=== PATIENT | female | born 2000 | race Two or more races ===

== ENCOUNTER 2024-06-05 10:25 | Outpatient (AMB) | payer MEDICAID, SELFPAY ==
[2024-06-05 10:43] VITALS: BP 123/78; PULSE 87; RESP 16; TEMP 36.6; O2SAT 98; BMI 29.5
--- NOTE | 2024-06-05 10:43 | AMB.OBINITIA ---
Vital Signs 06/05/24 10:43 Height 1.55 m Height Method Stated Weight 70.987 kg Weight Measurement Method Standing Scale BMI 29.5 BP 123/78 Blood Pressure Source Automatic Cuff Blood Pressure Location Left Upper Arm Position Sitting Respiration 16 Pulse 87 Pulse Source Monitor Temp 97.9 F Temp Source Oral Pulse Oximetry (%) 98 Oxygen Delivery Method Room Air Allergies/Home Meds Allergies & Medications Allergies No Known Allergies Allergy (Verified 06/05/24 10:45) Medication Reconciliation aspirin 81 mg capsule 81 mg PO QDAY 60 days #60 caps 06/05/24 [Rx] Intake Visit Data Collection New Patient or Established: New Patient (never been to [facility]) Reason for Visit:: OB Care Seen by Clinical Staff ONLY (RN/MA): No Junior Php Developer Required: Yes Junior Php Developer's name/title: Ami Sun Do You Feel Safe at Home: Yes Authorities Contacted: N/A PCP or OBGYN visit in last 3 months: Yes Hx Now: Yes Are you currently on any form of Control: No Last menstrual period: 10/19/23 Pain Present Currently: No Pain Scale Used: Turner-Aldridge/Numerical Pain scale:: 0 Smoking Status Smoking Status: Never smoker Questionnaires Covid-19 Vaccine Questionnaire Has patient been vacinated for Covid-19 Have you been vacinated for Covid-19: No PHQ-9 PHQ-2 Over the last 2 weeks, how often have you been bothered by any of the following problems? 1. Little interest or pleasure in doing things: not at all 2. Feeling down, depressed, or hopeless: not at all Total score: 0 PHQ-9 3. Trouble falling or staying asleep, or sleeping too much: Not at all 4. Feeling tired or having little energy: Not at all 5. Poor appetite or overeating: Not at all 6. Feeling bad about yourself - or that you are a failure or have let yourself or your family down: Not at all 7. Trouble concentrating on things, such as reading the newspaper or watching television: Not at all 8. Moving or speaking so slowly that other people could have noticed? - Or the opposite - being so fidgety or restless that you have been moving around a lot more than usual: not at all 9. Thoughts that you would be better off or of hurting yourself in some way: Not at all Total score: 0 Source: Developed by Drs. Mahesh Rosen, Raina Douglas, Vern Keen and colleagues, with an educational paulette from [employer]. Depression screen completed yes Social History Living Situation History Marital Status: Single Lives With: Family Housing: House Tobacco History Smoking Status: Never smoker Second Hand Smoke Exposure: No Alcohol History Alcohol Intake: Never Substance Use History Substance Use: none Domestic Abuse History Do You Feel Safe at Home: Yes Past Medical History Past Medical History Have you ever been diagnosed with any of the following: Neurological Problems Cerebrovascular Accident (CVA): No Transient Ischemic Attacks (TIA): No Dementia: No Alzheimer's Disease: No Parkinson's Disease: No Brain Tumor: No Meningitis: No Seizures: No Epilepsy: No Multiple Sclerosis: No Cerebral Palsy: No Amyotrophic Lateral Sclerosis (ALS/Elvie Gehrig's): No Guillain-[place] Syndrome: No Spina Bifida: No Paralysis: No Peripheral Neuropathy: No Marsh's Palsy: No Subdural Hematoma: No Migraine: No Head Trauma: No Spinal Cord Injury: No Traumatic Brain Injury: No Cardiology Problems Myocardial Infarction: No Cardiac Arrhythmia: No Atrial Fibrillation: No Angina: No Heart Murmur: No Hypertension: Yes (Mother) Respiratory Problems Chronic Obstructive Pulmonary Disease (COPD): No Asthma: No Bronchitis: No Emphysema: No Pneumonia: No Pulmonary Fibrosis: No Tuberculosis: No Pulmonary Embolism: No Pulmonary Edema: No Hx Cough: No Cough: No Wheezing: No Smoking: No Smoking Cessation Counseling: No Smoking Exposure: No Tobacco Use: No Stomache/Intestinal Problems Liver Cancer: No Hepatitis: No Cirrhosis: No Pancreatic Cancer: No Pancreatitis: No Celiac Disease: No Genital/Urinary Problems Chronic Kidney Disease: No Renal Disease: No Kidney Stones: No Polycystic Kidney Disease: No Neurogenic Bladder: No Inguinal Hernia: No Dialysis: No Prostate Cancer: No Benign Prostatic Hyperplasia: No Reproductive Problems Breast Cancer: No Endometriosis: No Fibroids: No Genital Herpes: No Gonorrhea: No Pelvic Inflammatory Disease: No Polycystic Ovarian Syndrome: No Previous Pregnancies: Yes Syphilis: No Testicular Cancer: No Uterine Prolapse: No Musculoskeletal Problems Muscular Dystrophy: No Myasthenia Gravis: No Marfan's Syndrome: No Bone Cancer: No Arthritis: No Head,Eye,Nose,Throat Problems Cataracts: No Glaucoma: No Blind: No Retinal Detachment: No Macular Degeneration: No Chronic Ear Infections: No Deafness: No Eye Prosthesis: No Endocrine Problems Diabetes Mellitus Type 1: No Diabetes Mellitus Type 2: Yes (Father ) [place]'s Syndrome: No [place]'s Disease: No Hyperthyroidism: No Hypothyroidism: No Blood Problems Anemia: No Leukemia: No Hemophilia: No Thalassemia: No Sickle Cell Disease: No Clotting Problems: No Psychologic Problems Schizophrenia: No Recreational Drug Use: No Bipolar Disorder: No Depression: No Anxiety: No Behavior Problems: No Self-Mutilation: No Attention Deficit Disorder: No Attention Deficit Hyperactivity Disorder: No Depression: No Post Traumatic Stress Disorder: No Eating Disorder: No Other Problems Hospitalization: No Autoimmune Disease: No Down Syndrome: No Autism: No Developmental Delay: No Cosmetic Surgery: No Shingles: No Falls: No Blood Transfusions: No Blood Transfusion Reaction: No Anesthesia Reactions: No Organ Transplant: No Chemotherapy: No Radiation Therapy: No Hyperbaric Therapy: No Surgical History Angioplasty: No Appendectomy: No Bariatric Surgery: No Breast Surgery: No Cancer Surgery: No Carotid Endarterectomy: No Cholecystectomy: No Colectomy: No Colostomy: No Coronary Artery Bypass Graft: No Valve Replacement: No Herniorrhaphy: No Total Hip Replacement: No Total Knee Replacement: No Hysterectomy: No Pacemaker: No Sinus Surgery: No Splenectomy: No TAHBSO-Total Abdominal Hysterectomy: No Thyroidectomy: No Ureter Stent: No History of Present Illness HPI Narrative Patient is a at 33 weeks and 4 days gestation, presenting for transfer of care. Her last menstrual period is uncertain, occurring in April 2023. was dated using a 12-week, 5-day ultrasound performed on 01-11-2024, with an estimated due date of 07-20-2024. Patient has a history of a previous delivery at 33 weeks in [place] in 2018 due to preeclampsia. The incision was transverse. She is currently taking vitamins, iron, and folic acid. Aspirin is planned to prevent preeclampsia but has not yet been started. Patient denies any current problems and reports the baby is active. Her blood group is O-positive with a negative antibody screen. She has [employer] insurance, which may affect ultrasound authorization. OB Initial Visit Menstrual History Menstrual reliability: definite Flow: normal Menstrual regularity: regular Monthly: Yes Age at menarche: 14 On control pills at conception: No Date of positive home test: 11/16/23 Associated symptoms (LMP): Reports fatigue OB History : 2 Para: 1 Hx # Pregnancies: 1 Hx Total # of Abortions (Spontaneous & Elective): 0 # of Living Children: 1 Delivery History 1st : Child's name: Uday date: 11/11/17 sex: male Gestational age at delivery (weeks): 33 Delivery type: weight (lbs): 2100 g History of depression before or after : No Infection History & Risk Evaluation History of STDs: chlamydia Varicella/chicken pox status: immunized Genetic Screening & History Genetic Screening/Teratology Counseling - Includes patient, baby's father, or anyone in either family with: 1. Patient's age 35 years or older as of estimated date of delivery: No 2. Thalassemia (Vietnamese, English, Mediterranean, or Background); MCV less than 80: No 3. Neural Tube Defect (Meningomyelocele, Spina Bifida, or Anencephaly): No 4. Congenital Heart Defect: No 5. Down Syndrome: No 6. Rashad-Sachs (Ashkenazi Confucianism, Cajun, [place]): No 7. Manjula Disease (Ashkenazi Confucianism): No 8. Familial Dysautonomia (Ashkenazi Confucianism): No 9. Sickle Cell Disease or Trait (): No 10. Hemophilia or other blood disorders: No 11. Muscular Dystrophy: No 12. Cystic Fibrosis: No 13. [place]'s Chorea: No 14. Mental Retardation/Autism: No 15. Other inherited genetic or chromosomal disorder: No 16. Maternal Metabolic Disorder (EG,TYPE 1 Diabetes, PKU): No 17. Patient or baby's father had a child with defects not listed above: No 18. Recurrent loss or a stillbirth: No 19. Medications (including supplements, vitamins, herbs or otc drugs)/illicit/recreational drugs/alcohol since last menstrual period: No 20. Any other: No Infection History 1. Live with someone with TB or exposed to TB: No 2. Rash or viral illness since last menstrual period: No 3. Hepatitis B,C: No 4. History of STD: chlamydia Other (see comments) Source: [employer] Review of Systems Review of Systems Systems Reviewed: All systems reviewed, normal except as documented Constitutional Constitutional: Reports fatigue Endocrine Endocrine: Reports fatigue Exam General Limitations: no limitations General Appearance: alert, in no apparent distress, comfortable, cooperative, healthy appearing, well developed and well groomed Head Head exam: atraumatic, normocephalic and normal inspection Neck Neck exam: Present normal inspection, full ROM and trachea midline Chest Chest inspection: Present normal inspection and symmetric chest wall rise Abdominal Abdominal exam: Present soft and normal bowel sounds Extremities Extremities exam: Present normal inspection and full ROM Back Back exam: Present normal inspection and full ROM Psych Psychiatric exam: Present normal affect and normal mood Skin Skin exam: Present warm, dry, intact and normal color Assessment & Plan Diagnosis / Problem List (1) Supervision of high risk , unspecified, third trimester: Status: Acute Plan: , 33 weeks 4 days gestation: - 23-year-old presenting for transfer of care. - JUSTIN 07/20/2024 based on 12-week 5-day ultrasound. - History of delivery via section at 33 weeks in 2018 due to preeclampsia. - Current appears uncomplicated with normal labs and screening tests. - Blood group O-positive, antibody screen negative, rubella immune, RPR non-reactive. - Hepatitis B negative, HIV negative, gonorrhea and chlamydia negative. - One-hour glucose tolerance 122, cystic fibrosis screening negative, AFB negative. Plan: - Start low-dose aspirin for preeclampsia prevention. - Order growth ultrasound to assess weight. - Schedule follow-up appointment in 2 weeks. - Continue vitamins, iron, and folic acid supplementation. - Await insurance authorization for ultrasound; clinic to contact patient once approved. (2) Hx of preeclampsia, prior , currently : Status: Acute Additional Plan Follow Up: 2 Weeks Office Procedures OB Clinic LOC & Office Proc's Nursing/Assessment Patient Status: Established Patient OB Clinic Nursing Assessment: Medication Reconciliation, Update PMH in EMR and Vital Signs OB Clinic Coordination of Care: Complex Care and Chronic Disease 1-5, Consent,records obtained, informed consent, Education Simp Pt/Fam, Lab and Imaging orders, Results/Orders obtained and Staff clarify orders Special Needs: Heart tones Established Patient Charge Established Patient Point Assignment: 135 Established Patient Point Charge: EP Level 4 (120-155)
== END 2024-06-05 10:55 | disposition home or self-care (01) ==
LOC: HODSOBC 10:25
PROVIDERS: PCP Obstetrics & Gynecology; Referring Provider Obstetrics & Gynecology; Supervising Provider Obstetrics & Gynecology; Visit Provider Obstetrics & Gynecology
DX: O09.93 Supervision of high risk pregnancy, unspecified, third trimester (principal); Z3A.33 33 weeks gestation of pregnancy
CPT/HCPCS: 99214; G0463

== ENCOUNTER 2024-06-20 09:25 | Outpatient (AMB) | payer MEDICAID, SELFPAY ==
[2024-06-20 09:34] VITALS: BP 124/83; PULSE 85; RESP 16; TEMP 36.6; O2SAT 98; BMI 30.3
--- NOTE | 2024-06-20 09:34 | OBCLNT_ITS ---
Vital Signs 06/20/24 09:34 Height 1.55 m Height Method Stated Weight 72.802 kg Weight Measurement Method Standing Scale BMI 30.3 BP 124/83 Blood Pressure Source Automatic Cuff Blood Pressure Location Left Upper Arm Position Sitting Respiration 16 Pulse 85 Pulse Source Monitor Temp 97.8 F Temp Source Oral Pulse Oximetry (%) 98 Oxygen Delivery Method Room Air Allergies/Home Meds Allergies & Medications Allergies No Known Allergies Allergy (Verified 06/28/24 10:09) Medication Reconciliation aspirin 81 mg capsule 81 mg PO QDAY 60 days #60 caps 06/05/24 [Rx Confirmed 06/28/24] Intake Visit Data Collection New Patient or Established: Established Patient (seen at [facility] within 3 years) Reason for Visit:: CARE/ U/S RESULTS Seen by Clinical Staff ONLY (RN/MA): No Associate Account Manager Required: Yes Associate Account Manager's name/title: SIMI UNGER Do You Feel Safe at Home: Yes Authorities Contacted: N/A PCP or OBGYN visit in last 3 months: Yes Date of Last PCP or OBGYN visit: 06/13/24 Hx Now: Yes Are you currently on any form of Control: No Last menstrual period: 10/18/24 Pain Present Currently: No Pain Scale Used: Turner-Aldridge/Numerical Pain scale:: 0 Smoking Status Smoking Status: Never smoker Questionnaires PHQ-9 PHQ-2 Over the last 2 weeks, how often have you been bothered by any of the following problems? 1. Little interest or pleasure in doing things: not at all 2. Feeling down, depressed, or hopeless: not at all Total score: 0 PHQ-9 3. Trouble falling or staying asleep, or sleeping too much: Not at all 4. Feeling tired or having little energy: Not at all 5. Poor appetite or overeating: Not at all 6. Feeling bad about yourself - or that you are a failure or have let yourself or your family down: Not at all 7. Trouble concentrating on things, such as reading the newspaper or watching television: Not at all 8. Moving or speaking so slowly that other people could have noticed? - Or the opposite - being so fidgety or restless that you have been moving around a lot more than usual: not at all 9. Thoughts that you would be better off or of hurting yourself in some way: Not at all Total score: 0 Source: Developed by Drs. Mahesh Rosen, Raina Douglas, Vern Keen and colleagues, with an educational paulette from [employer]. Depression screen completed yes Social History Living Situation History Marital Status: Single Lives With: Family Housing: House Tobacco History Smoking Status: Never smoker Second Hand Smoke Exposure: No Alcohol History Alcohol Intake: Never Substance Use History Substance Use: none Domestic Abuse History Do You Feel Safe at Home: Yes Past Medical History Past Medical History Have you ever been diagnosed with any of the following: Neurological Problems Cerebrovascular Accident (CVA): No Transient Ischemic Attacks (TIA): No Dementia: No Alzheimer's Disease: No Parkinson's Disease: No Brain Tumor: No Meningitis: No Seizures: No Epilepsy: No Multiple Sclerosis: No Cerebral Palsy: No Amyotrophic Lateral Sclerosis (ALS/Elvie Gehrig's): No Guillain-[place] Syndrome: No Spina Bifida: No Paralysis: No Peripheral Neuropathy: No Marsh's Palsy: No Subdural Hematoma: No Migraine: No Head Trauma: No Spinal Cord Injury: No Traumatic Brain Injury: No Cardiology Problems Myocardial Infarction: No Cardiac Arrhythmia: No Atrial Fibrillation: No Angina: No Heart Murmur: No Hypertension: Yes (Mother) Respiratory Problems Chronic Obstructive Pulmonary Disease (COPD): No Asthma: No Bronchitis: No Emphysema: No Pneumonia: No Pulmonary Fibrosis: No Tuberculosis: No Pulmonary Embolism: No Pulmonary Edema: No Hx Cough: No Cough: No Wheezing: No Smoking: No Smoking Cessation Counseling: No Smoking Exposure: No Tobacco Use: No Stomache/Intestinal Problems Liver Cancer: No Hepatitis: No Cirrhosis: No Pancreatic Cancer: No Pancreatitis: No Celiac Disease: No Genital/Urinary Problems Renal Disease: No Kidney Stones: No Polycystic Kidney Disease: No Neurogenic Bladder: No Inguinal Hernia: No Dialysis: No Prostate Cancer: No Benign Prostatic Hyperplasia: No Reproductive Problems Breast Cancer: No Endometriosis: No Fibroids: No Genital Herpes: No Gonorrhea: No Pelvic Inflammatory Disease: No Polycystic Ovarian Syndrome: No Previous Pregnancies: Yes Syphilis: No Testicular Cancer: No Uterine Prolapse: No Musculoskeletal Problems Muscular Dystrophy: No Myasthenia Gravis: No Marfan's Syndrome: No Bone Cancer: No Arthritis: No Head,Eye,Nose,Throat Problems Cataracts: No Glaucoma: No Blind: No Retinal Detachment: No Macular Degeneration: No Chronic Ear Infections: No Deafness: No Eye Prosthesis: No Endocrine Problems Diabetes Mellitus Type 1: No Diabetes Mellitus Type 2: Yes (Father ) [place]'s Syndrome: No Darell's Disease: No Hyperthyroidism: No Hypothyroidism: No Blood Problems Anemia: No Leukemia: No Hemophilia: No Thalassemia: No Sickle Cell Disease: No Clotting Problems: No Psychologic Problems Schizophrenia: No Recreational Drug Use: No Bipolar Disorder: No Depression: No Anxiety: No Behavior Problems: No Self-Mutilation: No Attention Deficit Disorder: No Attention Deficit Hyperactivity Disorder: No Depression: No Post Traumatic Stress Disorder: No Eating Disorder: No Other Problems Hospitalization: No Down Syndrome: No Autism: No Developmental Delay: No Cosmetic Surgery: No Shingles: No Falls: No Blood Transfusions: No Blood Transfusion Reaction: No Anesthesia Reactions: No Organ Transplant: No Chemotherapy: No Radiation Therapy: No Hyperbaric Therapy: No Hepatitis B: No Hepatitis C: No Communicable Disease: No Cancer: No Cervical Cancer: No Lung Cancer: No Ovarian Cancer: No Surgical History Angioplasty: No Appendectomy: No Bariatric Surgery: No Breast Surgery: No Cancer Surgery: No Carotid Endarterectomy: No Cholecystectomy: No Colectomy: No Colostomy: No Coronary Artery Bypass Graft: No Valve Replacement: No Herniorrhaphy: No Total Hip Replacement: No Total Knee Replacement: No Hysterectomy: No Pacemaker: No Sinus Surgery: No Splenectomy: No TAHBSO-Total Abdominal Hysterectomy: No Thyroidectomy: No Ureter Stent: No History of Present Illness HPI Narrative OBC at 35w5d. The patient reports experiencing cramping, which is noted to be common at this stage of . No contractions or other problems are reported. The patient has a history of previous section. No cramping/ bleeding No nausea/ vomiting Diagnostic Test Results and Labs: - Ultrasound (01-11-2024): Performed at 12 weeks, 5 days for dating - Blood group: O-positive - Antibody screen: negative - Labs (12-28-2023): - Rubella: immune - RPR: non-reactive - Hepatitis B: negative - HIV: negative - Gonorrhea: negative - Chlamydia: negative - One-hour glucose tolerance test: 122 - Cystic fibrosis screening: negative - AFB: negative Review of Systems Review of Systems Systems Reviewed: All systems reviewed, normal except as documented Visit JUSTIN Calculator Estimated Delivery Date Method Current WG Current Estimate 07/20/24 Ultrasound #1 37w 1d Exam General Limitations: no limitations General Appearance: alert, in no apparent distress, comfortable, cooperative, healthy appearing, well developed and well groomed Head Head exam: atraumatic, normocephalic and normal inspection Neck Neck exam: Present normal inspection, full ROM and trachea midline Card Cardiovascular exam: Present regular rate, normal rhythm and normal heart sounds Abdominal Abdominal exam: Present soft and normal bowel sounds Extremities Extremities exam: Present normal inspection and full ROM Back Back exam: Present normal inspection and full ROM Psych Psychiatric exam: Present normal affect and normal mood Skin Skin exam: Present warm, dry, intact and normal color Assessment & Plan Diagnosis / Problem List (1) Supervision of high risk , unspecified, third trimester: Status: Acute Plan: - 23-year-old presenting for transfer of care. - JUSTIN 07/20/2024 based on 12-week 5-day ultrasound. - History of delivery via section at 33 weeks in 2018 due to preeclampsia. - Current appears uncomplicated with normal labs and screening tests. - Blood group O-positive, antibody screen negative, rubella immune, RPR non- reactive. - Hepatitis B negative, HIV negative, gonorrhea and chlamydia negative. - One-hour glucose tolerance 122, cystic fibrosis screening negative, AFB negative. heart rate is 150 bpm, which is within normal range. - Schedule weekly visits from now until delivery - Perform Group B Streptococcus (GBS) vaginal culture swab at 36 weeks - Book section for delivery (date to be determined at next visit) - Follow-up appointment in one week (2) Hx of preeclampsia, prior , currently : Status: Acute Additional Assessment Prepare for the anatomy scan around 20 weeks to assess development and detect any potential abnormalities. Begin monitoring movements; report any significant decrease or absence of movement to your healthcare provider. Continue a nutritious diet and aim for appropriate weight gain as advised; stay physically active with safe exercises like walking or yoga. Undergo screening for gestational diabetes between 24 and 28 weeks to ensure early detection and management. Discuss any discomforts such as back pain or heartburn, and explore safe relief options. Office Procedures OB Clinic LOC & Office Proc's Nursing/Assessment Patient Status: Established Patient OB Clinic Nursing Assessment: Medication Reconciliation, Update PMH in EMR and Vital Signs OB Clinic Coordination of Care: Complex Care and Chronic Disease 1-5, Consent,records obtained, informed consent, Education Simp Pt/Fam, Results/Orders obtained and Staff clarify orders Special Needs: Heart tones Established Patient Charge Established Patient Point Assignment: 120 Established Patient Point Charge: EP Level 4 (120-155)
== END 2024-06-20 09:53 | disposition home or self-care (01) ==
LOC: HODSOBC 09:25
PROVIDERS: PCP Obstetrics & Gynecology; Referring Provider Obstetrics & Gynecology; Supervising Provider Obstetrics & Gynecology; Visit Provider Obstetrics & Gynecology
DX: O09.93 Supervision of high risk pregnancy, unspecified, third trimester (principal); Z87.59 Personal history of other complications of pregnancy, childbirth and the puerperium; Z3A.35 35 weeks gestation of pregnancy
CPT/HCPCS: 99214; G0463

== ENCOUNTER 2024-06-28 09:58 | Outpatient (AMB) | payer MEDICAID, SELFPAY ==
[2024-06-28 10:07] VITALS: BP 137/84; PULSE 83; RESP 16; TEMP 36.6; O2SAT 98; BMI 30.2
--- NOTE | 2024-06-28 10:07 | AMB.OBVISIT ---
Vital Signs 06/28/24 10:07 Height 1.55 m Height Method Stated Weight 72.688 kg Weight Measurement Method Standing Scale BMI 30.2 BP 137/84 H Blood Pressure Source Automatic Cuff Blood Pressure Location Left Upper Arm Position Sitting Respiration 16 Pulse 83 Pulse Source Monitor Temp 97.8 F Temp Source Oral Pulse Oximetry (%) 98 Oxygen Delivery Method Room Air Allergies/Home Meds Allergies & Medications Allergies No Known Allergies Allergy (Verified 06/28/24 10:09) Medication Reconciliation aspirin 81 mg capsule 81 mg PO QDAY 60 days #60 caps 06/05/24 [Rx Confirmed 06/28/24] Intake Visit Data Collection New Patient or Established: Established Patient (seen at [facility] within 3 years) Reason for Visit:: CARE Seen by Clinical Staff ONLY (RN/MA): No Classics Teacher Required: Yes Classics Teacher's name/title: SIMI UNGER Do You Feel Safe at Home: Yes Authorities Contacted: N/A PCP or OBGYN visit in last 3 months: Yes Date of Last PCP or OBGYN visit: 06/20/24 Hx Now: Yes Are you currently on any form of Control: No Pain Present Currently: No Pain Scale Used: Turner-Aldridge/Numerical Pain scale:: 0 Smoking Status Smoking Status: Never smoker Questionnaires Covid-19 Vaccine Questionnaire Has patient been vacinated for Covid-19 Have you been vacinated for Covid-19: No PHQ-9 PHQ-2 Over the last 2 weeks, how often have you been bothered by any of the following problems? 1. Little interest or pleasure in doing things: not at all 2. Feeling down, depressed, or hopeless: not at all Total score: 0 PHQ-9 3. Trouble falling or staying asleep, or sleeping too much: Not at all 4. Feeling tired or having little energy: Not at all 5. Poor appetite or overeating: Not at all 6. Feeling bad about yourself - or that you are a failure or have let yourself or your family down: Not at all 7. Trouble concentrating on things, such as reading the newspaper or watching television: Not at all 8. Moving or speaking so slowly that other people could have noticed? - Or the opposite - being so fidgety or restless that you have been moving around a lot more than usual: not at all 9. Thoughts that you would be better off or of hurting yourself in some way: Not at all Total score: 0 Source: Developed by Drs. Mahesh Rosen, Raina Douglas, Vern Keen and colleagues, with an educational paulette from [employer]. Depression screen completed yes Social History Living Situation History Lives With: Family Housing: House Tobacco History Smoking Status: Never smoker Second Hand Smoke Exposure: No Alcohol History Alcohol Intake: Never Substance Use History Substance Use: none Domestic Abuse History Do You Feel Safe at Home: Yes Past Medical History Past Medical History Have you ever been diagnosed with any of the following: Neurological Problems Cerebrovascular Accident (CVA): No Transient Ischemic Attacks (TIA): No Dementia: No Alzheimer's Disease: No Parkinson's Disease: No Brain Tumor: No Meningitis: No Seizures: No Epilepsy: No Multiple Sclerosis: No Cerebral Palsy: No Amyotrophic Lateral Sclerosis (ALS/Elvie Gehrig's): No Guillain-[place] Syndrome: No Spina Bifida: No Paralysis: No Peripheral Neuropathy: No Marsh's Palsy: No Subdural Hematoma: No Migraine: No Head Trauma: No Spinal Cord Injury: No Traumatic Brain Injury: No Cardiology Problems Myocardial Infarction: No Cardiac Arrhythmia: No Atrial Fibrillation: No Angina: No Heart Murmur: No Coronary Artery Disease: No Atherosclerotic Heart Disease: No Peripheral Vascular Disease: No Hypercholesterolemia: No Aneurysm: No Congestive Heart Failure: No Congenital Heart Disease: No Valvular Heart Disease: No Rheumatic Fever: No Hypertension: Yes (Mother) Respiratory Problems Chronic Obstructive Pulmonary Disease (COPD): No Asthma: No Bronchitis: No Emphysema: No Pneumonia: No Pulmonary Fibrosis: No Tuberculosis: No Pulmonary Embolism: No Pulmonary Edema: No Hx Cough: No Cough: No Wheezing: No Smoking: No Smoking Cessation Counseling: No Smoking Exposure: No Tobacco Use: No Stomache/Intestinal Problems Liver Cancer: No Hepatitis: No Cirrhosis: No Pancreatic Cancer: No Pancreatitis: No Celiac Disease: No Crohn's Disease: No Obstructive Bowel: No Genital/Urinary Problems Chronic Kidney Disease: No Renal Disease: No Kidney Stones: No Polycystic Kidney Disease: No Neurogenic Bladder: No Inguinal Hernia: No Dialysis: No Prostate Cancer: No Benign Prostatic Hyperplasia: No Reproductive Problems Breast Cancer: No Endometriosis: No Fibroids: No Genital Herpes: No Gonorrhea: No Pelvic Inflammatory Disease: No Polycystic Ovarian Syndrome: No Previous Pregnancies: Yes Syphilis: No Testicular Cancer: No Uterine Prolapse: No Musculoskeletal Problems Muscular Dystrophy: No Myasthenia Gravis: No Marfan's Syndrome: No Bone Cancer: No Arthritis: No Gout: No Head,Eye,Nose,Throat Problems Cataracts: No Glaucoma: No Blind: No Retinal Detachment: No Macular Degeneration: No Chronic Ear Infections: No Deafness: No Eye Prosthesis: No Endocrine Problems Diabetes Mellitus Type 1: No Diabetes Mellitus Type 2: Yes (Father ) Elzbieta's Syndrome: No Luzerne's Disease: No Hyperthyroidism: No Hypothyroidism: No Blood Problems Anemia: No Leukemia: No Hemophilia: No Thalassemia: No Sickle Cell Disease: No Clotting Problems: No Psychologic Problems Schizophrenia: No Recreational Drug Use: No Bipolar Disorder: No Depression: No Anxiety: No Behavior Problems: No Self-Mutilation: No Attention Deficit Disorder: No Attention Deficit Hyperactivity Disorder: No Depression: No Post Traumatic Stress Disorder: No Eating Disorder: No Other Problems Hospitalization: No Down Syndrome: No Autism: No Developmental Delay: No Cosmetic Surgery: No Shingles: No Falls: No Blood Transfusions: No Blood Transfusion Reaction: No Anesthesia Reactions: No Organ Transplant: No Chemotherapy: No Radiation Therapy: No Hyperbaric Therapy: No Hepatitis B: No Hepatitis C: No Communicable Disease: No Cancer: No Cervical Cancer: No Lung Cancer: No Ovarian Cancer: No Surgical History Angioplasty: No Appendectomy: No Bariatric Surgery: No Breast Surgery: No Cancer Surgery: No Carotid Endarterectomy: No Cholecystectomy: No Colectomy: No Colostomy: No Coronary Artery Bypass Graft: No Valve Replacement: No Herniorrhaphy: No Total Hip Replacement: No Total Knee Replacement: No Hysterectomy: No Pacemaker: No Sinus Surgery: No Splenectomy: No TAHBSO-Total Abdominal Hysterectomy: No Thyroidectomy: No Ureter Stent: No Visit JUSTIN Calculator Estimated Delivery Date Method Current WG Current Estimate 07/20/24 Ultrasound #1 36w 6d Office Procedures OB Clinic LOC & Office Proc's Nursing/Assessment Patient Status: Established Patient OB Clinic Nursing Assessment: Medication Reconciliation, Update PMH in EMR and Vital Signs OB Clinic Coordination of Care: Complex Care and Chronic Disease 1-5, Consent,records obtained, informed consent, Education Simp Pt/Fam, Lab and Imaging orders and Staff clarify orders Special Needs: Heart tones Miscellaneous Interventions: Culture Specimen Collection Established Patient Charge Established Patient Point Assignment: 145 Established Patient Point Charge: EP Level 4 (120-066)
== END 2024-06-28 10:22 | disposition home or self-care (01) ==
LOC: HODSOBC 09:58
PROVIDERS: PCP Obstetrics & Gynecology; Referring Provider Obstetrics & Gynecology; Supervising Provider Obstetrics & Gynecology; Visit Provider Obstetrics & Gynecology
DX: Z34.93 Encounter for supervision of normal pregnancy, unspecified, third trimester (principal); Z3A.36 36 weeks gestation of pregnancy
CPT/HCPCS: 99214; G0463

== ENCOUNTER 2024-06-28 14:20 | Outpatient (RCR) | payer MEDICAID, SELFPAY ==
--- NOTE | 2024-06-08 14:53 | XR_ITS ---
EXAMINATION: US OB biophysical profile ORDERING PROVIDER: Waylon Bartlett MD HISTORY: WEEKLY NST/BPP; HX OF PRECLAMPSIA TECHNIQUE: Multiple transabdominal sonographic images were obtained by nuclear medicine technologist and submitted for interpretation. COMPARISON: 01/03/2024, pelvic ultrasound OB less than 14 weeks. FINDINGS: FETUS: Chery. HEART MOTION: 150 beats/min. AMNIOTIC FLUID INDEX: 18.2 cm BREATHING MOVEMENT: 2 . GROSS BODY MOVEMENT: 2 . TONE: 2 . QUALITATIVE AMNIOTIC FLUID VOLUME: 2 TOTAL BIOPHYSICAL PROFILE: 8 of 8 . IMPRESSION: Single live intrauterine gestation with biophysical profile 8 of 8.
[2024-06-08 15:21] VITALS: BP 124/68; PULSE 81; RESP 16; TEMP 36.9
--- NOTE | 2024-06-13 14:40 | XR_ITS ---
Examination: Biophysical profile, ultrasound Date and time of exam: June 13, 2024 1451 hours INDICATIONS: History preeclampsia of Technique: Multiple transabdominal sonographic images of the pelvis abdomen obtained. Attention is directed to the breathing movement, gross body movement, amniotic fluid volume and tone. Findings: Amniotic fluid index 10.1 cm Total biophysical profile is 8 of 8. breathing movement is 2. Gross body movement is 2. tone is 2. Qualitative amniotic fluid volume is 2 Impression: Biophysical profile is 8 of 8.
[2024-06-13 15:33] VITALS: BP 124/79; PULSE 75; RESP 16; TEMP 36.9
--- NOTE | 2024-06-20 14:36 | XR_ITS ---
Examination: Biophysical profile, ultrasound Date and time of exam: June 20, 2024 1442 hours INDICATIONS: Onset back pain today, history preeclampsia of Technique: Multiple transabdominal sonographic images of the pelvis abdomen obtained. Attention is directed to the breathing movement, gross body movement, amniotic fluid volume and tone. Findings: Amniotic fluid index 10.0 cm Total biophysical profile is 8 of 8. breathing movement is 2. Gross body movement is 2. tone is 2. Qualitative amniotic fluid volume is 2 Impression: Biophysical profile is 8 of 8.
[2024-06-20 15:30] VITALS: BP 114/59; PULSE 82; RESP 16; TEMP 36.8
--- NOTE | 2024-06-28 14:32 | XR_ITS ---
Examination: Biophysical profile, ultrasound Date and time of exam: June 28, 2024 1450 hours INDICATIONS: Diagnosis history preeclampsia of , history back pain 15/08/2024 Technique: Multiple transabdominal sonographic images of the pelvis abdomen obtained. Attention is directed to the breathing movement, gross body movement, amniotic fluid volume and tone. Findings: Amniotic fluid index 16.5 cm Total biophysical profile is 8 of 8. breathing movement is 2. Gross body movement is 2. tone is 2. Qualitative amniotic fluid volume is 2 Impression: Biophysical profile is 8 of 8.
[2024-06-28 15:57] VITALS: BP 137/86; PULSE 76; RESP 20; TEMP 36.7
== END 2024-06-28 23:59 | disposition home or self-care (01) ==
LOC: S4S1 14:20
PROVIDERS: PCP Obstetrics & Gynecology; Referring Provider Obstetrics & Gynecology; Visit Provider Obstetrics & Gynecology
DX: O09.293 Supervision of pregnancy with other poor reproductive or obstetric history, third trimester (principal); O09.893 Supervision of other high risk pregnancies, third trimester; Z3A.36 36 weeks gestation of pregnancy
CPT/HCPCS: 59025; 76819

== ENCOUNTER 2024-07-02 11:25 | Inpatient (IN) | payer MEDICAID, SELFPAY ==
[2024-07-02] VITALS (39 sets, daily range): BP systolic 121–163; BP diastolic 73–103; PULSE 73–103; RESP 17–98; TEMP 36.6–36.8; O2SAT 99–100; BMI 29.9
[2024-07-02] MEDS: RINGERS LACTATED 1000 ML 1,000 ML 999 ML IV (12:20)
[2024-07-02] MEDS: TERBUTALINE SULF INJ 1 MG/ML VIAL 0.25 MG SC (12:28)
[2024-07-02 13:07] LABS: Basophils % (Auto) 0 % (0-2.5); Eosinophils # (Auto) 0.1 Thou/mm3 (0.0-0.5); Eosinophils % (Auto) 1 % (0-10); Hematocrit 36.2 % (36.0-46.0); Immature Granulocytes % (Auto) 0 % (0-0); Immature Granulocytes Auto 0.05 Thou/mm3 (0.00-0.00); Lymphocytes # (Auto) 2.1 Thou/mm3 (1.0-4.8); Lymphocytes % (Auto) 19 % (10-50); Mean Corpuscular HGB Conc 35.9 g/dl (31.0-37.0); Mean Corpuscular Hemoglobin 31.6 pg (25.0-35.0); Mean Corpuscular Volume 88 fL (80-100); Monocytes # (Auto) 0.9 Thou/mm3 (0.0-0.8); Monocytes % (Auto) 8 % (0-12); Neutrophils # (Auto) 8.3 Thou/mm3 (1.8-7.7); Neutrophils % (Auto) 73 % (37-80); Nucleated Red Blood Cell % 0 /100 WBC (0); Platelet Count 159 Thou/mm3 (140-440); RDW Standard Deviation 43.4 fL (36.4-46.3); Red Blood Count 4.12 Miln/mm3 (4.00-5.20); White Blood Count 11.4 Thou/mm3 (3.6-11.0)
[2024-07-02 13:19] LABS: Creatinine,Random Urine 80 mg/dL (30-125); Protein Total, Random Urine 22 mg/dL (1-14)
[2024-07-02 13:29] LABS: Alanine Aminotransferase 14 U/L (10-49); Albumin, Serum 3.7 gm/dL (3.5-5.0); Albumin/Globulin Ratio 1.5 (1.2-2.2); Alkaline Phosphatase 165 U/L (46-116); Anion Gap 10 (7-16); Aspartate Amino Transferase 22 U/L (0-34); BUN/Creatinine Ratio 12 Ratio (12-20); Bilirubin,Total 0.4 mg/dL (0.3-1.2); Blood Urea Nitrogen 6 mg/dL (9-23); Calcium 9.1 mg/dL (8.3-10.6); Calcium (Corrected) 9.3 mg/dL (8.5-10.1); Carbon Dioxide 20.5 mMol/L (20.0-31.0); Chloride 108 mMol/L (98-107); Creatinine (Component) 0.5 mg/dL (0.6-1.3); Estimated Creatinine Clearance 166.7 mL/min (>60); Globulin 2.5 gm/dL (2.3-3.5); Glucose 90 mg/dL (74-106); Osmolality,Calculated 273 (275-295); Potassium 3.9 mMol/L (3.4-5.1); Sodium 138 mMol/L (136-145); Total Protein 6.2 gm/dL (5.7-8.2); eGFR > 60 See Note
--- NOTE | 2024-07-02 14:39 | ESHP_ITS ---
Documentation for date of: 07/02/24 OB Labor/Induct. HPI History of Present Illness Chief complaint: contractions : 2 Para: 1 Term pregnancies: 0 pregnancies: 1 Living children: 1 History of Abortions: Spontaneous and Elective: 0 History of Vaginal deliveries: 0 History of sections: Yes History of : No JUSTIN: 07/20/24 Gestational Age (weeks): 37 Gestational Age (days): 3 History of present illness: Shelby presents with contractions. They started this morning and were more frequent then (q2min), less frequent now but still persistent. She denies any lof, vb and she feels normal movement. She denies any vision changes, RUQ pain or headache. She receives care with Dr. Bartlett. History of Present Dating criteria: based on 1st trimester US only (12wk ultrasound) Adequate Care: Yes Narrative: Hx of PLTCS at 33wk in [place] in 2018 for pre-eclampsia with severe features. Also GDM discovered at end of . Taking ASA 81mg since 33wk Labs Narrative: - Blood group O-positive, antibody screen negative, rubella immune, RPR non- reactive. - Hepatitis B negative, HIV negative, gonorrhea and chlamydia negative. - One-hour glucose tolerance 122, cystic fibrosis screening negative, AFB negative. Review of Systems Review of Systems Narrative Review of Systems: Review of Systems Systems Reviewed: All systems reviewed, normal except as documented Constitutional Constitutional: Denies body ache(s), Denies chills, Denies fever(s) and Denies headache(s) ENT Ears, Nose, Mouth, and Throat: Denies headache(s) and Denies vertigo Cardiovascular Cardiovascular: Denies chest pain, Denies palpitations, Denies dyspnea and Denies syncope Respiratory Respiratory: Denies cough, Denies dyspnea Gastrointestinal Gastrointestinal: Denies nausea and Denies vomiting Neurologic Neurologic: Denies convulsions, Denies headache(s), Denies other visual disturbances, Denies syncope and Denies vertigo Past Medical History Family History OTHER FAMILY HX: HTN (mother) and T2DM (father) Surgical History SURGICAL: Positive Section OTHER SURGICAL HX: No other surgeries besides PLTCS Social History SOCIAL: Good social support, partner at bedside. No tobacco, ETOH or illicit drug use. Past Medical History Comments PMH COMMENT: Hx of pre-eclampsia and GDM in prior . Hx of chlamydia in the past treated without recurrence. Meds Home Medications and Allergies Allergies Allergy/AdvReac Type Severity Reaction Status Date / Time No Known Allergies Allergy Verified 06/28/24 10:09 OB Exam Physical Exam Vital signs: Temp Pulse Resp BP 98.1 F 103 H 17 163/95 H 07/02/24 11:46 07/02/24 14:25 07/02/24 11:46 07/02/24 14:25 Narrative: General: well developed, well nourished, no acute distress, conversant Cardiac: normal heart rate Lungs: breathing without distress Abdomen: soft, gravid, non-tender, no rebound or guarding Extremities: no pain with palpation of calves Detailed Labor and Delivery Exam Dilation (cm): 1 Effacement (%): 0 Cervix position: posterior station: -3 Consistency: firm Presentation: Vertex Membranes: intact monitor accelerations: 15x15 monitor decelerations: None intermediate designer variability: Moderate (11-25) Contraction frequency (min): q3-5 min OB Results Labs 07/02/24 12:20 07/02/24 12:20 Labs: Short CBC 07/02/24 Range/Units 12:20 WBC 11.4 H (3.6-11.0) Thou/mm3 Hgb 13.0 (12.0-16.0) g/dL Hct 36.2 (36.0-46.0) % Plt Count 159 (140-440) Thou/mm3 BMP 07/02/24 12:20 Sodium 138 Potassium 3.9 Chloride 108 H Carbon Dioxide 20.5 BUN 6 L Creatinine 0.5 L Glucose 90 Calcium 9.1 Liver Function 07/02/24 Range/Units 12:20 Total Bilirubin 0.4 (0.3-1.2) mg/dL AST 22 (0-34) U/L ALT 14 (10-49) U/L Alkaline Phosphatase 165 H (46-116) U/L Albumin 3.7 (3.5-5.0) gm/dL OB Assessment & Plan Assessment and Plan (1) Gestational hypertension: Status: Acute Assessment and plan: Shelby is a 23yo with SIUP at 37&3wk with new diagnosis of GHTN based on multiple consecutive mild range (rare severe) bp's. Borderline urine p:c at 0.275. Other PIH labs wnl. No s/sx of pre-eclampsia. In triage she received IVF and a dose of terbutaline which stopped her ctx temporarily, but then they resumed q3-5min. No cervical change. In the setting of hx of pre-term pre-eclampsia with severe features with prior section, delivery is indicated, which I discussed with patient and her partner at length via art psychotherapist or therapist. She is amenable to proceeding with delivery. Reassuring assessment. PMhx/ complicated by: Hx of PLTCS at 33wk in [place] in 2018 for pre-eclampsia with severe features. Also GDM discovered at end of . Passed glucola this . Taking ASA 81mg since 33wk Plan: -Admit to L&D -NPO (last ate cereal at 0900, so scheduled for 1700 this evening) -Counseled/consented re: section. Discussed all r/b/a to include: bleeding (possible need for blood transfusion), infection (subcutaneous, deeper layers or uterine with possible need for prolonged admission or re-admission for IV antibiotics, I&D with wound packing, etc), injury to nearby structures such as bladder, bowel, ureters, blood vessels, nerves with possible need for re- operation, pain, injury to baby, hysterectomy, DVT/PE. Answered all questions to patient and their support person's satisfaction. -IV abx ppx: ancef 2g IV -Nursing and anesthesia team aware of plan for section. Will proceed to OR when team is ready after appropriate NPO time interval. (2) History of section: Status: Acute (3) 37 weeks gestation of : Status: Acute (4) Hx of preeclampsia, prior , currently : Status: Acute (1) Gestational hypertension Qualifiers: Trimester: third trimester Qualified Code(s): O13.3 - Gestational [- induced] hypertension without significant proteinuria, third trimester
[2024-07-02] MEDS: RINGERS LACTATED 1000 ML 1,000 ML 100 ML IV (15:02)
[2024-07-02 15:54] LABS: Syphilis Nonreactive (Nonreactive)
[2024-07-02] MEDS: FAMOTIDINE INJ 10 MG/ML VIAL 2 ML 20 MG IV (16:41)
[2024-07-02] MEDS: METOCLOPRAMIDE INJ 5 MG/ML VIAL 2 ML 10 MG IVP (16:41)
[2024-07-02] MEDS: ceFAZolin/D5W 2 GM IV 2 GM/100 ML BAG IV (17:21)
--- NOTE | 2024-07-02 19:02 | ESOP_ITS ---
Operative Note - [facility] Procedure Date of procedure: 07/02/24 Procedure Performed: Repeat low transverse section Indication: Shelby pappas a 23yo with SIUP at 37w3d who presented to L&D for contractions, was not in active labor based on cervical exam, but did have unremitting contractions despite terbutaline and IV fluids. During her time in triage, she had recurrent mild range bp's (rare severe range) and PIH labs were done which showed borderline urine p:c 0.275. She was diagnosed with GHTN. She has a history of pre-eclampsia with severe features with section performed at 33wk in her previous . She was counseled on indication for delivery and was amenable. All r/b/a were discussed at length via romansh phone hearing healthcare practitioner. Pre-Op diagnosis: SIUP at 37w3d GHTN based on recurrent mild range bp's, borderline urine p:c 0.275 Hx of pre-eclampsia with severe features with section at 33wk in previous Post-Op diagnosis: SIUP at 37w3d GHTN based on recurrent mild range bp's, borderline urine p:c 0.275 Hx of pre-eclampsia with severe features with section at 33wk in previous Anesthesia type: Spinal Procedure description: After obtaining informed consent, the patient was taken to the operating room. There was reassuring heart rate tracing prior. Spinal anesthesia was administered. A gonzalez catheter was placed and bilateral sequential compression devices were placed. She was then prepped and draped in the normal sterile fashion in the dorsal supine position with left lateral tilt. A timeout was performed to confirm patient name, date of , procedure and indication. The team was in agreement. Spinal anesthesia was found to be adequate using an Allis clamp. Anceph 2g IV x1 were given for prophylaxis. A Pfannenstiel skin incision was then made with the scalpel and carried through to the underlying layer of fascia. The fascia was incised in the midine and the incision was extended laterally with the Wilcox scissors. The superior and inferior aspects of the fascial incision were then grasped with the Jaime clamps, elevated and the underlying rectus muscles were dissected off bluntly and sharply. The peritoneum was entered digitally and the rectus muscles were then in the midline. The peritoneal incision was then extended superiorly and inferiorly with good visualization of the bladder. A bladder blade was placed. The lower uterine segment was scored in a transverse fashion with the scalpel. The uterus was then entered bluntly and the incision was extended with traction with clear amniotic fluid noted. The infant's head was elevated to the level of the incision. Fundal pressure was applied. The head was delivered atraumatically in the OA position. The anterior shoulder, posterior shoulder and corpus were delivered without difficulty. The nose and mouth were suctioned with bulb suction and cord was clamped x2 and cut. Infant was vigorous. The was handed off to the awaiting nursing team. Cord blood obtained for typing. The placenta was then removed with uterine massage and cord traction. The uterus was exteriorized and cleared of all clot and debris. The uterine incision was repaired with 0-vicryl suture in a running locking fashion. A second layer of interrupted sutures using O-vicryl was used to closed the hysterotomy incision in an imbricating fashion. The uterine incision was inspected and hemostasis was noted. In addition to standard IV pitocin, patient received TXA 1g IV x1. She had good uterine tone during and after closure of hysterotomy. The posterior cul-de-sac was suctioned and the uterus returned to the abdomen. The gutters were cleared of all clot. The peritoneum was closed using a 3-0 vicryl suture in running fashion. The rectus muscles were inspected and small areas of oozing were cauterized. There was an area of thready rectus muscle that continued to ooze, so it was sutured with 3-0 vicryl and a piece of surgicel snow was placed. Hemostasis was achieved. The fascia was reapproximated with 0- Vicryl suture in a running fashion. The subcutaneous tissue was then irrigated copiously. Kimberley's fascia was closed using 3-0 vicryl suture in a running fashion in 2 layers. SUPERVISOR GARAGE then reapproximated the skin with 4-0 monocryl suture in running subcuticular fashion. The incision was cleaned with a wet lap and dried with a dry lap. Eugzttfzu-[id number]-[id number] bandage was applied overlying the incision and activated according to motion picture actor instructions. Fundus was firm at the U-1cm. Sponge, lap and needle counts were correct x2. The procedure was without complications and the patient tolerated the procedure well. She was taken to recover further on Labor and Delivery, in stable condition. Fluids: crystalloid Fluid amount (mL): 2,000 Urine output (mL): 150 Specimen: other (placenta and cord, not sent to path) Estimated blood loss (ml): 900 Findings: Dense scar tissue noted in subcutaneous layer. Clear amniotic fluid. Female in cephalic presentation, apgars 7/9, time of 1758. Weight 2695g. Normal appearing uterus, fallopian tubes and ovaries. Complications: none Surgical staff Operation Date: 07/02/24 07:15 Case Staff CORPORATE TRAVEL MANAGER: Brennan Youssef RN First Assistant: Erica Iglesias Diagnosis Discharge Diagnosis (1) Gestational hypertension: Status: Acute (2) 37 weeks gestation of : Status: Acute (3) History of section: Status: Acute (4) Supervision of high risk , unspecified, third trimester: Status: Acute (5) Hx of preeclampsia, prior , currently : Status: Acute Problem List Completed Was Problem List Reviewed/Reconciled?: Yes (1) Gestational hypertension Qualifiers: Trimester: third trimester Qualified Code(s): O13.3 - Gestational [- induced] hypertension without significant proteinuria, third trimester
[2024-07-02] MEDS: OXYTOCIN in NS 20 units 20 UNIT/1,000 ML BAG 125 UNIT IV (19:32)
[2024-07-02] MEDS: HYDROcodone/APAP 5/325 TABLET 2 TAB PO (20:52)
[2024-07-03] VITALS: BP 124/75; PULSE 92; RESP 18; TEMP 36.9; O2SAT 100
[2024-07-03] MEDS: KETOROLAC INJ 30 MG/ML VIAL IVP ×3 (00:11→12:12)
[2024-07-03 04:15] VITALS: BP 122/79; PULSE 89; RESP 17; TEMP 36.7; O2SAT 99
[2024-07-03] MEDS: OXYTOCIN in NS 20 units 20 UNIT/1,000 ML BAG 125 UNIT IV (04:32)
[2024-07-03 08:00] VITALS: BP 128/82; PULSE 84; RESP 16; TEMP 36.6; O2SAT 96
[2024-07-03 08:05] LABS: Basophils % (Auto) 0 % (0-2.5); Eosinophils % (Auto) 0 % (0-10); Hematocrit 33.5 % (36.0-46.0); Hemoglobin 11.5 g/dL (12.0-16.0); Immature Granulocytes % (Auto) 0 % (0-0); Immature Granulocytes Auto 0.06 Thou/mm3 (0.00-0.00); Lymphocytes # (Auto) 1.7 Thou/mm3 (1.0-4.8); Lymphocytes % (Auto) 12 % (10-50); Mean Corpuscular HGB Conc 34.3 g/dl (31.0-37.0); Mean Corpuscular Hemoglobin 31.4 pg (25.0-35.0); Mean Corpuscular Volume 92 fL (80-100); Monocytes # (Auto) 0.9 Thou/mm3 (0.0-0.8); Monocytes % (Auto) 7 % (0-12); Neutrophils # (Auto) 11.2 Thou/mm3 (1.8-7.7); Neutrophils % (Auto) 80 % (37-80); Nucleated Red Blood Cell % 0 /100 WBC (0); Platelet Count 149 Thou/mm3 (140-440); RDW Standard Deviation 44.5 fL (36.4-46.3); Red Blood Count 3.66 Miln/mm3 (4.00-5.20); White Blood Count 13.9 Thou/mm3 (3.6-11.0)
[2024-07-03] MEDS: HYDROcodone/APAP 5/325 TABLET 1 TAB PO (09:58)
[2024-07-03 12:20] VITALS: BP 132/87; PULSE 96; RESP 18; TEMP 36.7; O2SAT 97
--- NOTE | 2024-07-03 13:04 | ESPR_ITS ---
Subjective Subjective Interval history: Patient doing well overall. Pain is controlled. She is ambulating no lightheadedness/dizziness. Voiding spontaneously x2 since gonzalez was removed, no issues. Tolerating regular diet without nausea/vomiting. No fevers/chills, no CP/SOB. Exam Vital Signs Temp Pulse Resp BP Pulse Ox O2 Del Method 98.1 F 96 18 132/87 H 97 Room Air 07/03/24 12:20 07/03/24 12:20 07/03/24 12:20 07/03/24 12:20 07/03/24 12:20 07/03/24 12:20 Narrative Exam General: well developed, well nourished, no acute distress, conversant Cardiac: normal heart rate Lungs: breathing without distress Abdomen: soft, post-gravid, non-tender, no rebound or guarding, overlying bandage removed, pfannenstiel incision covered by dry/clean/intact prineo bandage. Incision well reapproximated. No erythema, drainage or induration. Fundus firm at u-2cm. Extremities: no pain with palpation of calves, trace edema of BLE Objective Labs 07/03/24 07:18 07/02/24 12:20 Labs: Laboratory Results - last 24 hr 07/02/24 07/02/24 07/02/24 12:00 12:20 16:00 WBC 11.4 H RBC 4.12 Hgb 13.0 Hct 36.2 MCV 88 MCH 31.6 MCHC 35.9 RDW Std Deviation 43.4 Plt Count 159 Neut % (Auto) 73 Lymph % (Auto) 19 Rutherford % (Auto) 8 Eos % (Auto) 1 Baso % (Auto) 0 Neut # (Auto) 8.3 H Lymph # (Auto) 2.1 Rutherford # (Auto) 0.9 H Eos # (Auto) 0.1 Baso # (Auto) 0.0 Immature Gran # (Auto) 0.05 H Absolute Nucleated RBC 0.00 Immature Gran % 0 Nucleated RBC % 0 Sodium 138 Potassium 3.9 Chloride 108 H Carbon Dioxide 20.5 Anion Gap 10 BUN 6 L Creatinine 0.5 L Estim Creat Clear Calc 166.7 eGFR > 60 BUN/Creatinine Ratio 12 Glucose 90 Calculated Osmolality 273 L Calcium 9.1 Corrected Calcium 9.3 Total Bilirubin 0.4 AST 22 ALT 14 Alkaline Phosphatase 165 H Total Protein 6.2 Albumin 3.7 Globulin 2.5 Albumin/Globulin Ratio 1.5 Ur Random Creatinine 80 U Random Total Protein 22 H Syphilis Serology Nonreactive Blood Type O Positive Antibody Screen NEGATIVE Blood Bank Wristband ID Yes 07/03/24 07:18 WBC 13.9 H RBC 3.66 L Hgb 11.5 L Hct 33.5 L MCV 92 MCH 31.4 MCHC 34.3 RDW Std Deviation 44.5 Plt Count 149 Neut % (Auto) 80 Lymph % (Auto) 12 Rutherford % (Auto) 7 Eos % (Auto) 0 Baso % (Auto) 0 Neut # (Auto) 11.2 H Lymph # (Auto) 1.7 Rutherford # (Auto) 0.9 H Eos # (Auto) 0.0 Baso # (Auto) 0.0 Immature Gran # (Auto) 0.06 H Absolute Nucleated RBC 0.00 Immature Gran % 0 Nucleated RBC % 0 Sodium Potassium Chloride Carbon Dioxide Anion Gap BUN Creatinine Estim Creat Clear Calc eGFR BUN/Creatinine Ratio Glucose Calculated Osmolality Calcium Corrected Calcium Total Bilirubin AST ALT Alkaline Phosphatase Total Protein Albumin Globulin Albumin/Globulin Ratio Ur Random Creatinine U Random Total Protein Syphilis Serology Blood Type Antibody Screen Blood Bank Wristband ID Assessment & Plan Problem List (1) examination following delivery: Status: Acute Assessment and plan: Patient is a 23yo [id number] s/p uncomplicated RLTCS for GHTN with borderline urine p:c 0.275, doing well on POD 1. Vitals wnl with normotensive bp's, benign exam. Hemodynamically stable with no evidence of infection. Appropriate change in H/H from 13 to 11.5. complicated by Hx of PLTCS at 33wk in [place] in 2018 for pre-eclampsia with severe features. Also GDM discovered at end of . Passed glucola this . Plan: -Continue routine /post-op care -Regular diet -motrin 800mg PO Q8hr, norco 5/325mg PO Q6hr prn pain -Encourage ambulation and use of IS -Anticipate discharge home tomorrow if meeting all milestones (2) Gestational hypertension: Status: Acute (3) 37 weeks gestation of : Status: Acute (4) History of section: Status: Acute (5) Supervision of high risk , unspecified, third trimester: Status: Acute (6) Hx of preeclampsia, prior , currently : Status: Acute Time Spent With Patient Time: Total time spent is greater than 50% in coordination of care (as documented) at patient's floor/unit and/or counseling patient:
[2024-07-03 16:57] VITALS: BP 127/81; PULSE 94; RESP 18; TEMP 36.6; O2SAT 97
[2024-07-03] MEDS: IBUPROFEN TAB 400 MG TABLET 800 MG PO (17:17)
[2024-07-03 20:00] VITALS: BP 143/90; PULSE 106; RESP 18; TEMP 36.7
[2024-07-04] VITALS: BP 126/80; PULSE 97; RESP 16; TEMP 36.8; O2SAT 98
[2024-07-04] MEDS: IBUPROFEN TAB 400 MG TABLET 800 MG PO (01:17)
[2024-07-04 03:52] VITALS: BP 127/82; PULSE 98; RESP 18; TEMP 36.8; O2SAT 98
[2024-07-04 08:00] VITALS: BP 133/87; PULSE 90; RESP 17; TEMP 36.8; O2SAT 98
[2024-07-04 11:40] VITALS: BP 138/89; PULSE 102; RESP 18; TEMP 36.7; O2SAT 97
--- NOTE | 2024-07-04 11:59 | ESDS_ITS ---
DS: Providers Provider Date of admission: 07/02/24 14:47 Primary care physician: Physician No Primary/Family Admitting Provider: Fawn Hernandez MD Attending Provider on Admission: Fawn Hernandez MD Consults: 07/02/24 18:56 Referral Routine Comment: Attending Provider on DC: Fawn Hernandez MD Discharging Provider: Fawn Hernandez MD DS: Diagnosis Discharge Diagnosis (1) examination following delivery: Status: Acute (2) Gestational hypertension: Status: Acute (3) 37 weeks gestation of : Status: Acute (4) History of section: Status: Acute Problem List Completed Was Problem List Reviewed/Reconciled?: Yes Summary/Hosp Course Brief History: Shelby is a 23yo [id number] s/p uncomplicated RLTCS for GHTN with borderline urine p:c 0.275, doing well on POD 2. Vitals wnl with normotensive bp's, benign exam. Hemodynamically stable with no evidence of infection. Appropriate change in H/H from 13 to 11.5. complicated by Hx of PLTCS at 33wk in [place] in 2018 for pre-eclampsia with severe features. Also GDM discovered at end of . Passed glucola this . She has had an uncomplicated post-operative course, meeting all milestones and feels ready for discharge home. She is ambulating without lightheadedness, tolerating regular diet no n/v, spontaneously voiding without issue. She has no chest pain or shortness of breath. No fevers or chills. Pain well controlled. Peripartum Data Procedures: Procedures Operation Date: 07/02/24 07:15 Actual Procedure Side Surgeon p in OB Bilateral Fawn Hernandez MD Status at Discharge Functional status at discharge: independent ambulation Overall status at discharge: patient is back to baseline Time Spent with Patient Time attestation: Total time spent providing and/or coordinating discharge services: Exam Vital Signs Temp Pulse Resp BP Pulse Ox O2 Del Method 98.3 F 98 18 127/82 98 Room Air 07/04/24 03:52 07/04/24 03:52 07/04/24 03:52 07/04/24 03:52 07/04/24 03:52 07/04/24 03:52 Narrative Exam General: well developed, well nourished, no acute distress, conversant Cardiac: normal heart rate Lungs: breathing without distress Abdomen: soft, post-gravid, non-tender, no rebound or guarding, pfannenstiel incision covered by dry/clean/intact prineo bandage. Incision well reapproximated. No erythema, drainage or induration. Fundus firm at u-2cm. Extremities: no pain with palpation of calves, trace edema of BLE Discharge Plan Plan Patient Disposition: HOME (Self Care) Patient condition on transfer: Stable Prescriptions/Referrals Prescriptions/Med Rec: New hydrocodone-acetaminophen 5-325 mg Tablet 1 tab PO Q6HR MDD 4 tablets PRN (Reason: Patient rated pain 7 to 8) 10 Days Qty: 10 0RF ibuprofen 800 mg tablet 800 mg PO Q8HR PRN (Reason: Abdominal Pain) 10 Days Qty: 30 0RF polyethylene glycol 3350 17 gram powder in packet 17 g PO QDAY Qty: 14 0RF Discontinued aspirin 81 mg capsule 81 mg PO QDAY 60 Days Qty: 60 2RF Referrals: No Primary/Family,Physician [Primary Care Provider] - Patient/Caregiver Discharge Instructions Discharge Activity: activity as tolerated and other Other Discharge Activity Instructions:: vaginal rest and no heavy lifting more than 10 pounds for 6 weeks. No driving while taking narcotic. Keep incision clean and dry. Other Discharge Diet Instructions: Regular diet Education Materials: C Section Dc Print Language: Khmer Activity Restrictions/Additional Instructions: follow up with your OBGYN in 1 week, call clinic for appointment Stand Alone Forms: Arabella Award Info., Patient Portal Info Letter Discharge Order Discharge Orders: Discharge (Routine); Ordered 07/04/24 Ordered By: Fawn Hernandez Planned Discharge Date 07/04/24 (2) Gestational hypertension Qualifiers: Trimester: third trimester Qualified Code(s): O13.3 - Gestational [- induced] hypertension without significant proteinuria, third trimester
== END 2024-07-04 12:57 | disposition home or self-care (01) | DRG 540 ==
LOC: S4SX 16:19 → S4NX 17:33
PROVIDERS: Admitting Provider Obstetrics & Gynecology; Visit Provider Obstetrics & Gynecology
PROC: 10D00Z1 Extraction of Products of Conception, Low, Open Approach (ICD-10-PCS; CPT 59514; principal; 2024-07-02 07:00)
DX: O34.211 Maternal care for low transverse scar from previous cesarean delivery (principal); Z3A.37 37 weeks gestation of pregnancy; Z37.0 Single live birth; O13.4 Gestational [pregnancy-induced] hypertension without significant proteinuria, complicating childbirth
CPT/HCPCS: 36415; 59025; 80053; 82570; 84156; 85025; 86780; 86850; 86900; 86901; 94762; A4649; J0689; J1885; J2274; J2371; J2590; J2765; J3010; J3105; J3490; J7120; A9270; J2270

== ENCOUNTER 2024-07-11 10:04 | Outpatient (AMB) | payer MEDICAID, SELFPAY ==
[2024-07-11 10:12] VITALS: BP 126/86; PULSE 96; RESP 16; TEMP 36.8; O2SAT 99
--- NOTE | 2024-07-11 10:12 | AMB.GYNCLNOT ---
Vital Signs 07/11/24 10:12 Weight 66.451 kg Weight Measurement Method Standing Scale BP 126/86 H Blood Pressure Source Automatic Cuff Blood Pressure Location Left Upper Arm Position Sitting Respiration 16 Pulse 96 Pulse Source Monitor Temp 98.2 F Temp Source Oral Pulse Oximetry (%) 99 Oxygen Delivery Method Room Air Allergies/Home Meds Allergies & Medications Allergies No Known Allergies Allergy (Verified 07/11/24 10:13) Medication Reconciliation hydrocodone 5 mg-acetaminophen 325 mg tablet 1 tab PO Q6HR PRN Patient rated pain 7 to 8 10 days #10 tabs 07/04/24 [Rx Confirmed 07/11/24] ibuprofen 800 mg tablet 800 mg PO Q8HR PRN Abdominal Pain 10 days #30 tabs 07/04/24 [Rx Confirmed 07/11/24] polyethylene glycol 3350 17 gram oral powder packet 17 g PO QDAY #14 ea 07/04/24 [Rx Confirmed 07/11/24] Intake Visit Data Collection New Patient or Established: Established Patient (seen at [facility] within 3 years) Reason for Visit:: Post-operative follow-up after on July 02 Seen by Clinical Staff ONLY (RN/MA): No Substation Inspector Required: Yes Substation Inspector's name/title: 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 Do You Feel Safe at Home: Yes Authorities Contacted: N/A PCP or OBGYN visit in last 3 months: Yes Hx Now: No Are you currently on any form of Control: No Pain Present Currently: No Pain Scale Used: Turner-Aldridge/Numerical Pain scale:: 0 Smoking Status Smoking Status: Never smoker Bundle Tier history Bundle Tier History Menstrual regularity: regular Flow: normal Monthly: Yes Menopausal: No Currently sexually active: Yes Questionnaires Covid-19 Vaccine Questionnaire Has patient been vacinated for Covid-19 Have you been vacinated for Covid-19: Yes PHQ-9 PHQ-2 Over the last 2 weeks, how often have you been bothered by any of the following problems? 1. Little interest or pleasure in doing things: not at all 2. Feeling down, depressed, or hopeless: not at all Total score: 0 PHQ-9 3. Trouble falling or staying asleep, or sleeping too much: Not at all 4. Feeling tired or having little energy: Not at all 5. Poor appetite or overeating: Not at all 6. Feeling bad about yourself - or that you are a failure or have let yourself or your family down: Not at all 7. Trouble concentrating on things, such as reading the newspaper or watching television: Not at all 8. Moving or speaking so slowly that other people could have noticed? - Or the opposite - being so fidgety or restless that you have been moving around a lot more than usual: not at all 9. Thoughts that you would be better off or of hurting yourself in some way: Not at all Total score: 0 If you checked off any problems, how difficult have these problems made it for you to do your work, take care of things at home, or get along with other people?: not difficult at all Source: Developed by Drs. Mahesh Rosen, Raina Douglas, Vern Keen and colleagues, with an educational paulette from [employer]. Social History Living Situation History Lives With: Family Housing: House Tobacco History Smoking Status: Never smoker Second Hand Smoke Exposure: No Alcohol History Alcohol Intake: Never Substance Use History Substance Use: none Domestic Abuse History Do You Feel Safe at Home: Yes Past Medical History Past Medical History Have you ever been diagnosed with any of the following: Neurological Problems Cerebrovascular Accident (CVA): No Transient Ischemic Attacks (TIA): No Dementia: No Alzheimer's Disease: No Parkinson's Disease: No Brain Tumor: No Meningitis: No Seizures: No Epilepsy: No Multiple Sclerosis: No Cerebral Palsy: No Amyotrophic Lateral Sclerosis (ALS/Elvie Gehrig's): No Guillain-[place] Syndrome: No Spina Bifida: No Paralysis: No Peripheral Neuropathy: No Marsh's Palsy: No Subdural Hematoma: No Migraine: No Head Trauma: No Spinal Cord Injury: No Traumatic Brain Injury: No Cardiology Problems Myocardial Infarction: No Cardiac Arrhythmia: No Atrial Fibrillation: No Angina: No Heart Murmur: No Coronary Artery Disease: No Atherosclerotic Heart Disease: No Peripheral Vascular Disease: No Hypercholesterolemia: No Aneurysm: No Congestive Heart Failure: No Congenital Heart Disease: No Valvular Heart Disease: No Rheumatic Fever: No Hypertension: Yes (Mother) Respiratory Problems Chronic Obstructive Pulmonary Disease (COPD): No Asthma: No Bronchitis: No Emphysema: No Pneumonia: No Pulmonary Fibrosis: No Tuberculosis: No Pulmonary Embolism: No Pulmonary Edema: No Hx Cough: No Cough: No Wheezing: No Smoking: No Smoking Cessation Counseling: No Smoking Exposure: No Tobacco Use: No Stomache/Intestinal Problems Liver Cancer: No Hepatitis: No Cirrhosis: No Pancreatic Cancer: No Pancreatitis: No Celiac Disease: No Crohn's Disease: No Obstructive Bowel: No Genital/Urinary Problems Renal Disease: No Kidney Stones: No Polycystic Kidney Disease: No Neurogenic Bladder: No Inguinal Hernia: No Dialysis: No Reproductive Problems Breast Cancer: No Endometriosis: No Fibroids: No Genital Herpes: No Gonorrhea: No Pelvic Inflammatory Disease: No Polycystic Ovarian Syndrome: No Previous Pregnancies: Yes Syphilis: No Uterine Prolapse: No Musculoskeletal Problems Muscular Dystrophy: No Myasthenia Gravis: No Marfan's Syndrome: No Bone Cancer: No Arthritis: No Gout: No Head,Eye,Nose,Throat Problems Cataracts: No Glaucoma: No Blind: No Retinal Detachment: No Macular Degeneration: No Chronic Ear Infections: No Deafness: No Eye Prosthesis: No Endocrine Problems Diabetes Mellitus Type 1: No Diabetes Mellitus Type 2: Yes (Father ) Tram's Syndrome: No Stone's Disease: No Hyperthyroidism: No Hypothyroidism: No Blood Problems Anemia: No Leukemia: No Hemophilia: No Thalassemia: No Sickle Cell Disease: No Clotting Problems: No Psychologic Problems Schizophrenia: No Recreational Drug Use: No Bipolar Disorder: No Depression: No Anxiety: No Behavior Problems: No Self-Mutilation: No Attention Deficit Disorder: No Attention Deficit Hyperactivity Disorder: No Depression: No Post Traumatic Stress Disorder: No Eating Disorder: No Other Problems Hospitalization: No Down Syndrome: No Autism: No Developmental Delay: No Cosmetic Surgery: No Shingles: No Falls: No Blood Transfusions: No Blood Transfusion Reaction: No Anesthesia Reactions: No Organ Transplant: No Chemotherapy: No Radiation Therapy: No Hyperbaric Therapy: No Hepatitis B: No Hepatitis C: No Communicable Disease: No Cancer: No Cervical Cancer: No Lung Cancer: No Ovarian Cancer: No Surgical History Angioplasty: No Appendectomy: No Bariatric Surgery: No Breast Surgery: No Cancer Surgery: No Carotid Endarterectomy: No Cholecystectomy: No Colectomy: No Colostomy: No Coronary Artery Bypass Graft: No Valve Replacement: No Herniorrhaphy: No Total Hip Replacement: No Total Knee Replacement: No Hysterectomy: No Pacemaker: No Sinus Surgery: No Splenectomy: No TAHBSO-Total Abdominal Hysterectomy: No Thyroidectomy: No Ureter Stent: No History of Present Illness HPI Narrative Shelby Pearson, a female patient, presents for follow-up after a recent performed on July 02. The patient reports that her baby is doing well. The patient's incision was evaluated during the visit. The tape covering the incision was removed, and the incision site was noted to be healing appropriately. The patient was advised to continue using the binder provided by the hospital when walking or driving, but to remove it during rest periods. The patient confirmed that she is currently . No specific concerns or complications related to the or period were reported during this visit. Review of Systems Review of Systems Systems Reviewed: All systems reviewed, normal except as documented Exam General Limitations: no limitations General Appearance: alert, in no apparent distress, comfortable, cooperative, healthy appearing, well developed and well groomed Abdominal Abdominal exam: Present soft, normal bowel sounds and incision (clean/dry/intact, Prenio removed.) Psych Psychiatric exam: Present normal affect and normal mood Skin Skin exam: Present warm, dry, intact and normal color Assessment & Plan Diagnosis / Problem List (1) examination following delivery: Status: Acute (2) Gestational hypertension: Status: Acute Qualifiers: Trimester: third trimester Qualified Code(s): O13.3 - Gestational [-induced] hypertension without significant proteinuria, third trimester Plan Shelby Pearson, female patient, status post on July 02, 2024, presenting for post-operative follow-up. Status post section Assessment: Patient is 9 days status post section performed on July 02, 2024. The incision site was examined and appears to be healing well. The surgical tape was removed during this visit. Patient reports the baby is doing well. Plan: - Continue use of abdominal binder when walking or driving, remove when resting - Follow-up appointment scheduled for 2-month post- section visit - Discuss control options at next visit care Assessment: Patient is in the early period. She reports her . Plan: - Continue as tolerated - Provide education on care and support as needed Office Procedures OB Clinic LOC & Office Proc's Nursing/Assessment Patient Status: Established Patient OB Clinic Nursing Assessment: BP Monitoring, Medication Reconciliation, Update PMH in EMR and Vital Signs OB Clinic Coordination of Care: Complex Care and Chronic Disease 1-5, Consent,records obtained, informed consent, Education Simp Pt/Fam and Staff clarify orders Established Patient Charge Established Patient Point Assignment: 100 Established Patient Point Charge: EP Level 3 (80-115) Post Follow-up Visit Post Follow up Visit: Yes
== END 2024-07-11 10:19 | disposition home or self-care (01) ==
LOC: HODSOBC 10:04
PROVIDERS: Supervising Provider Obstetrics & Gynecology; Visit Provider Obstetrics & Gynecology
DX: Z39.2 Encounter for routine postpartum follow-up (principal); Z87.59 Personal history of other complications of pregnancy, childbirth and the puerperium
CPT/HCPCS: 99213; G0463

== ENCOUNTER 2024-08-31 15:34 | Outpatient (AMB) | payer MEDICAID, SELFPAY ==
--- NOTE | 2024-08-31 15:47 | AMB.OBPP ---
Vital Signs 08/31/24 15:50 Weight 63.73 kg Weight Measurement Method Standing Scale BP 119/82 Blood Pressure Source Automatic Cuff Blood Pressure Location Right Upper Arm Position Sitting Respiration 17 Pulse 78 Pulse Source Monitor Temp 97.7 F Temp Source Temporal Artery Scan Pulse Oximetry (%) 98 Oxygen Delivery Method Room Air Allergies/Home Meds Allergies & Medications Allergies No Known Allergies Allergy (Verified 08/31/24 15:52) Medication Reconciliation polyethylene glycol 3350 17 gram oral powder packet 17 g PO QDAY #14 ea 07/04/24 [Rx Confirmed 08/31/24] Intake Visit Data Collection New Patient or Established: Established Patient (seen at [facility] within 3 years) Reason for Visit:: Seen by Clinical Staff ONLY (RN/MA): No Computer Forensic Specialist Required: Yes Computer Forensic Specialist's name/title: SIMI UNGER Do You Feel Safe at Home: Yes Authorities Contacted: N/A PCP or OBGYN visit in last 3 months: Yes Date of Last PCP or OBGYN visit: 07/11/24 Hx Now: No Pain Present Currently: No Pain Scale Used: Turner-Aldridge/Numerical Pain scale:: 0 Smoking Status Smoking Status: Never smoker COMMUNICATIONS PROGRAMMER: Past Medical History Past Medical History: No Hx Neurological Disorders, No Hx Hypothyroidism, No Hx Hyperthyroidism, No Hx Breast Cancer, No Hx Cardiac Disorders, Yes Hx Hypertension (Mother), No Hx Cancer, No Hx Blood Disorders, No Hx Anemia, No Hx Gastrointestinal Disorders, No Hx Renal Disease, No Hx Diabetes Mellitus Type 1, Yes Hx Diabetes Mellitus Type 2 (Father ), No Hx Hysterectomy and No Hx Polycystic Ovarian Syndrome Questionnaires Covid-19 Vaccine Questionnaire Has patient been vacinated for Covid-19 Have you been vacinated for Covid-19: Yes Social History Living Situation History Lives With: Family Housing: House Tobacco History Smoking Status: Never smoker Second Hand Smoke Exposure: No Alcohol History Alcohol Intake: Never Substance Use History Substance Use: none Domestic Abuse History Do You Feel Safe at Home: Yes EPDS - PP Depression Screening [place] Pospartum Depression Screen I have been able to laugh and see the funny side of things: (0) As much as I always could I have looked forward with enjoyment to things: (0) As much as I ever did I have blamed myself unnecessarily when things went wrong: (0) No, never I have been anxious or worried for no good reason: (0) No, not at all I have felt scared or panicky for no very good reason: (0) No, not at all Things have been getting on top of me: (0) No, I have been coping as well as ever I have been so unhappy that I have had difficulty sleeping: (0) No, not at all I have felt sad or miserable: (0) No, not at all I have been so unhappy that I have been crying: (0) No, never The thought of harming myself has occurred to me: (0) Never Care JUSTIN Calculator Estimated Delivery Date Method Current WG Current Estimate 07/20/24 Ultrasound #1 47w 6d HPI Interval History: Patient reports that her incision has healed well. She is currently using a combination of and formula feeding for her infant. The patient is seeking information about control options for the period. She has completed her recovery period and no longer requires the use of support garments. No specific complaints or concerns were reported by the patient during this follow-up visit. She is a 24-year-old female presenting for a 2-month follow-up visit status post performed on July 02, 2024. The focus of the encounter was on discussing future contraceptive options and concluding care. Her obstetric history includes GTPAL: G1 T1 L1, with one resulting in delivery via on July 02, 2024. The patient's child will live with her. Exam General General Appearance: alert, in no apparent distress and healthy appearing Head Head exam: atraumatic Neck Neck exam: Present normal inspection and trachea midline Chest Chest inspection: Present normal inspection and symmetric chest wall rise External exam: Present normal external exam; Absent tenderness Neuro Neurological exam: Present oriented X3 Psych Psychiatric exam: Present normal affect and normal mood Office Procedures OB Clinic LOC & Office Proc's Nursing/Assessment Patient Status: Established Patient OB Clinic Nursing Assessment: Medication Reconciliation, Update PMH in EMR and Vital Signs OB Clinic Coordination of Care: Education Complex Pt/Fam, Consent,records obtained, informed consent, Lab and Imaging orders and Staff clarify orders Established Patient Charge Established Patient Point Assignment: 80 Established Patient Point Charge: EP Level 3 (80-115) Post Follow-up Visit Post Follow up Visit: Yes Assessment & Plan Diagnosis / Problem List (1) examination following delivery: Status: Acute (2) Gestational hypertension: Status: Acute Qualifiers: Trimester: third trimester Qualified Code(s): O13.3 - Gestational [-induced] hypertension without significant proteinuria, third trimester Plan Follow-up Plan: - Discontinue use of abdominal binder. - Recommend elastic corset for abdominal support if desired. - Discussed contraceptive options: - Short-acting methods: pills, patches (daily or every 3-4 days use) - Long-acting methods: implant, IUDs (3-year, 5-year, 10-year options) - Advised patient to research options and make a separate appointment for contraception initiation when decided. - No further visits required.
[2024-08-31 15:50] VITALS: BP 119/82; PULSE 78; RESP 17; TEMP 36.5; O2SAT 98
== END 2024-08-31 16:00 | disposition home or self-care (01) ==
LOC: HODSOBC 15:34
PROVIDERS: PCP Obstetrics & Gynecology; Referring Provider Obstetrics & Gynecology; Supervising Provider Obstetrics & Gynecology; Visit Provider Obstetrics & Gynecology
DX: Z39.2 Encounter for routine postpartum follow-up (principal); O13.5 Gestational [pregnancy-induced] hypertension without significant proteinuria, complicating the puerperium
CPT/HCPCS: 99213; G0463